=== PATIENT | male | born 1955 | race Caucasian/White ===

== ENCOUNTER 2017-08-06 14:13 | Emergency (ER) | payer MEDICAID, OTHER | END 2017-08-06 15:58 | disposition home or self-care (01) | LOC: E/R 14:13 | DX: R05 Cough (principal) | CPT/HCPCS: 71045; 99283-25 ==

== ENCOUNTER 2017-10-30 05:04 | Emergency (ER) | payer SELFPAY, MEDICAID | END 2017-10-30 06:45 | disposition home or self-care (01) | LOC: FTE 05:04 | DX: J06.9 Acute upper respiratory infection, unspecified (principal) | CPT/HCPCS: 99283 ==